=== PATIENT | male | born 1955 | race Caucasian/White ===

== ENCOUNTER → 2023-05-23 13:10 | Outpatient (REF) | payer MEDICARE, SELFPAY | LOC: RAD 13:10 | PROVIDERS: ATTENDING PHYSICIAN Internal Medicine | DX: I25.10 Atherosclerotic heart disease of native coronary artery without angina pectoris (principal) | CPT/HCPCS: 93880 ==

== ENCOUNTER → 2024-01-26 09:49 | Outpatient (REF) | payer MEDICARE, SELFPAY | LOC: MRI 3T 09:49 | PROVIDERS: ATTENDING PHYSICIAN Specialist; FAMILY PHYSICIAN Internal Medicine | DX: C61 Malignant neoplasm of prostate (principal) | CPT/HCPCS: 72197; A9575 ==

== ENCOUNTER → 2024-02-13 09:01 | Outpatient (REF) | payer MEDICARE, SELFPAY | LOC: RCS 09:01 | PROVIDERS: ATTENDING PHYSICIAN Internal Medicine Interventional Cardiology; FAMILY PHYSICIAN Internal Medicine | DX: I25.10 Atherosclerotic heart disease of native coronary artery without angina pectoris (principal) | CPT/HCPCS: 93017; 93350 ==

== ENCOUNTER → 2024-04-10 10:05 | Outpatient (REF) | payer MEDICARE, SELFPAY | LOC: HWRAD 10:05 | PROVIDERS: ATTENDING PHYSICIAN Internal Medicine | DX: R91.1 Solitary pulmonary nodule (principal) | CPT/HCPCS: 71250 ==

== ENCOUNTER → 2024-05-29 08:25 | Outpatient (REF) | payer MEDICARE, SELFPAY | LOC: HWRAD 08:25 | PROVIDERS: ATTENDING PHYSICIAN Physician Assistant; FAMILY PHYSICIAN Internal Medicine | DX: R10.32 Left lower quadrant pain (principal) | CPT/HCPCS: 74176 ==

== ENCOUNTER 2024-11-10 19:11 | Emergency (ER) | payer MEDICARE, SELFPAY ==
[2024-11-10 19:14] VITALS: BP 182/93
[2024-11-10 20:26] VITALS: BMI 33.5
[2024-11-10 20:47] LABS: Hematocrit 32.0 % (39.0-52.0); Hemoglobin 10.3 g/dL (13.0-18.0); Mean Corp Hgb Conc. 32.2 g/dL (33.0-37.0); Mean Corpuscular Volume 62.1 fL (80.0-94.0); Nucleated Red Blood Cells % 0 % (-); Platelet Count 172 10^3/uL (130-400); Red Cell Dist. Width 16.7 % (11.5-14.5)
[2024-11-10 20:48] VITALS: BP 147/81
[2024-11-10 21:00] VITALS: BP 141/79
[2024-11-10 21:00] LABS: ALT (SGPT) 19 U/L (0-50); AST (SGOT) 20 U/L (17-59); Albumin 4.0 g/dl (3.5-5.0); Alkaline Phosphatase 41 U/L (38-126); Blood Urea Nitrogen 23 mg/dl (9-20); Calcium 9.2 mg/dl (8.4-10.2); Carbon Dioxide 29 mmol/L (22-30); Chloride 104 mmol/L (98-107); Estimated Creatinine Clearance 73 ml/min; Glucose 100 mg/dl (70-99); Potassium 3.3 mmol/L (3.5-5.1); Sodium 138 mmol/L (135-145); Total Protein 6.6 g/dl (6.3-8.2); eGFR > 60.00
[2024-11-10 21:11] LABS: Troponin I < 0.012 ng/ml
[2024-11-10 22:00] VITALS: BP 138/81
--- NOTE | 2024-11-10 22:41 | ED.GENMED ---
History of Present Illness
General
Chief Complaint: Chest Pain
Source: patient
Exam Limitations: none
Time Seen by Provider: 11/10/24 21:24
Nursing documentation reviewed up to this point in time: agreed with
History of Present Illness
History of Present Illness:
Patient is a 69-year-old male with past history of hypertension reflux presents to the ER for evaluation. Patient reports he started with left chest burning and discomfort that went to his left arm around 7 PM which lasted for about 30 seconds. It
went away after 30 seconds and came back after a couple seconds. At the second time it also lasted for couple seconds and then resolved on its own. He had no associated nausea vomiting diaphoresis or shortness of breath. Patient reports this
occurred after eating sausage and peppers. He typically will get some reflux after eating this type of food and therefore took a Pepcid prior to eating his meal.
Patient has been pain-free since symptoms started around 7 PM.
He does report that he is followed by cardiology (DR Flower) for elevated calcium score and did have an echo and stress test which was negative.
He has no history of CAD. He is on a statin. He does not smoke.
Phy Exam
General Physical Exam
General Presentation: no apparent distress
General age: appears stated age
General Skin: warm and dry
General Habitus: normal
General Mental: alert
General Hydration: appears well hydrated
Cardiovascular Exam
Cardiovascular Exam: regular rate/rhythm, no murmur and normal peripheral pulses
Pulmonary Exam
Pulmonary Exam: lungs clear and no respiratory distress
Neurological Exam
Neurological Exam: alert and oriented x3
Musculoskeletal Exam
Musculoskeletal Exam: full ROM
Skin Exam
Skin Exam: normal color and warm/dry
Psychiatric Exam
Psychiatric Exam: normal mood/affect
Scores
Heart Score for Chest Pain Patients
STEMI patient?: Not applicable
Course
Orders/Labs/Results
Orders:
Orders
11/10/24 19:18
Electrocardiogram (*1) Urgent
Reason for Study: Chest Pain
EKG- Treatment ONCE
11/10/24 20:18
Cardiac Monitoring- Treatment ONCE
IV Insert/Care/Rem.- Treatment PRN
O2 Therapy [RESP] Urgent
Titrate/Wean O2 to maintain O2 sat greater than (%): 90
Special Instructions: Maintain sats >/=90%
Pulse Ox/spot Check [RESP] Urgent
Quantity: 1
Special Instructions: ON ROOM AIR
11/10/24 20:25
Complete Blood Count/With Diff Urgent
Comprehensive Metabolic Panel Urgent
Troponin I Urgent
11/10/24 20:27
Chest [CR Chest - 2 Views ] Urgent
Comment:
Reason For Exam: chest pain
11/10/24 22:36
Electrocardiogram (*1) Urgent
Reason for Study: Chest Pain
EKG- Treatment ONCE
11/10/24 23:36
Troponin I Urgent
Abnormal Lab Results
11/10/24
20:25
Hgb 10.3 L g/dL
(13.0-18.0)
Hct 32.0 L %
(39.0-52.0)
MCV 62.1 L fL
(80.0-94.0)
MCH 20.0 L pg
(27.0-31.0)
MCHC 32.2 L g/dL
(33.0-37.0)
RDW 16.7 H %
(11.5-14.5)
Abs Immat Gran (auto) 0.1 H 10^3/uL
(0-0.05)
Immature Gran % 1.3 H %
(0-0.5)
Potassium 3.3 L mmol/L
(3.5-5.1)
BUN 23 H mg/dl
(9-20)
Glucose 100 H mg/dl
(70-99)
11/10/24 20:25
11/10/24 20:25
Vital Signs
Initial and Last Documented VS:
Initial Vital Signs
Temp Pulse Resp BP Pulse Ox
97.9 F 74 16 182/93 98
11/10/24 19:14 11/10/24 19:14 11/10/24 19:14 11/10/24 19:14 11/10/24 19:14
Last Documented Vital Signs
Temp Pulse Resp BP Pulse Ox
97.9 F 51 13 138/76 98
11/10/24 19:14 11/10/24 23:20 11/10/24 23:15 11/10/24 23:00 11/10/24 23:53
MDM/Problems Addressed
Differential Diagnosis Includes:
Not limited to ACS, reflux GERD
MDM/Problems Addressed:
As documented patient is a 69-year-old male who ate sausage and peppers did take Pepcid prior to eating this meal however shortly after around 7 PM developed left-sided chest that radiated to his left arm. He did feel that this was burning. It
lasted for seconds at a time he had 1 additional episode also for seconds at a time and then symptoms resolved on their own. He has been asymptomatic here in the ER and awake alert no acute distress. He no acute findings on EKG normal cardiac
troponin.
Symptoms not consistent with ACS possible GERD from eating the meal. He does report history of reflux which is why he takes Pepcid when eating this type of meal. With history however of elevated calcium score despite normal echo history we will
have him follow-up with his imaging specialist and placing the chest pain hotline.
Chronic conditions affecting care:
htn, reflux
*Radiology
Radiology exam reviewed: radiology read reviewed
*Pulse Oximetry
SaO2: 98
Oxygen Mode of Delivery: Room air
Patient hypoxic: no
*EKG
Interpreted by ED Provider?: Yes
Interpretation: normal
Heart Rate: 64
Rate: normal
Rhythm: sinus
Ischemia: non-specific ST changes
*Critical Care Note
Total Time (30-74mins, 75-104mins- exclusive of procedures): Not Applicable
ED Attending Note
-
Portions of this chart may have been created with voice recognition software.� Occasional wrong word or��sound alike� substitutions may have occurred due to the inherent limitations of voice recognition software.
Discharge Plan
Departure
Patient Disposition: Home (Routine Discharge)
Date of Disposition: 11/11/24
Time of Disposition: 00:41
Patient with high blood pressure during this ER visit?: Yes
Condition: Fair
Covid-19: Not Applicable
Discharge Problem:
Chest pain
Instructions: Chest Pain DCA Follow Up, BLOOD PRESSURE
Referrals:
Leonardo Flower MD [Active, Cardiology]
Anthony Castro MD [Family Provider, Internal Medicine]
Activity Restrictions/Additional Instructions:
Follow-up with cardiology. You should receive a phone call from the office in the next several days if you do not please call the office to schedule an appointment for reevaluation. Return if any worsening of symptoms
Interventions
Interventions:
*Risk Screen - Suicide Last Done: 11/10/24 19:37
*General Assessment Last Done: 11/10/24 19:37
*Neglect/Abuse Screening Last Done: 11/10/24 19:37
*ED- Fall Risk Assessment Last Done: 11/10/24 19:37
*ED COVID-19 Vaccine History Last Done: 11/10/24 19:37
*Nursing Disposition Last Done: 11/11/24 01:03
ED- Cardiac Assessment Last Done: 11/10/24 19:37
Discharge Date and Time
Discharge Date/Time: 11/11/24 01:04
Print Language: IRANIAN
[2024-11-10 23:00] VITALS: BP 138/76
[2024-11-11 00:30] LABS: Troponin I < 0.012 ng/ml
== END 2024-11-11 01:04 | disposition home or self-care (01) ==
LOC: EMR 19:11
PROVIDERS: Nurse Practitioner; EMERGENCY PHYSICIAN Emergency Medicine; FAMILY PHYSICIAN Internal Medicine
DX: R07.9 Chest pain, unspecified (principal); I10 Essential (primary) hypertension; K21.9 Gastro-esophageal reflux disease without esophagitis
CPT/HCPCS: 99284; 71046; 80053; 84484; 85025; 93005